=== PATIENT | male | born 1945 | race Hispanic/Latino ===

== ENCOUNTER 2018-07-03 19:25 | Inpatient (IN) | payer MEDICARE ==
[2018-07-03 20:27] LABS: #Eosinphils 0.1 thou/uL (0.0-0.7); #Monocytes 0.5 thou/uL (0.11-0.59); #Neutrophils 4.9 thou/uL (1.40-6.50); %Basophils 0.4 % (0.0-1.0); %Eosinophils 2.2 % (0.0-10.0); %Lymphocytes 15.6 % (21.0-51.0); %Neutrophils 74.8 % (42.0-75.0); Hemoglobin 12.2 g/dL (14.0-18.0); Mean Corpuscular HGB CONC 32.1 g/dL (32.0-36.0); Mean Corpuscular Hemoglobin 29.1 pg (27.0-31.0); Mean Corpuscular Volume 90.9 fL (78.0-98.0); Mean Platelet Volume 6.9 fL (7.4-10.4); Platelet Count 213 thou/uL (130-400); RBC Distribution Width 17.8 % (11.5-14.5); Red Blood Cell (RBC) Count 4.18 mill/uL (4.70-6.10); White Blood Cell (WBC) Count 6.5 thou/uL (4.8-10.8)
[2018-07-03] MEDS ORDERED: Magnesium 2 GM/50 ML BAG (IN WATER) ONE (20:46)
[2018-07-03 20:50] LABS: ALT (SGPT) 13 U/L (8-55); AST (SGOT) 17 U/L (5-34); Albumin 3.8 g/dL (3.4-4.8); Alkaline Phosphatase 168 U/L (40-150); Anion Gap 16 mmol/L (10-20); BUN (Urea Nitrogen) 40 mg/dL (8.4-25.7); Bilirubin, Total 0.6 mg/dL (0.2-1.2); CK (CPK) 63 U/L (30-200); Calc. Creatinine Clearance 0 mL/min (70-130); Calcium 9.4 mg/dL (7.8-10.44); Carbon Dioxide 25 mmol/L (23-31); Chloride 96 mmol/L (98-107); Estimated GFR-MDRD 9; Globulin 3.5 g/dL (2.4-3.5); Glucose 105 mg/dL (83-110); Potassium 5.2 mmol/L (3.5-5.1); Protein, Total 7.3 g/dL (5.8-8.1); Sodium 132 mmol/L (136-145); Troponin I 0.087 ng/mL (< 0.028)
--- NOTE | 2018-07-03 21:51 | RAD ---
FRONTAL RADIOGRAPH CHEST: 07/03/18 COMPARISON: None. HISTORY: Indigestion, chest pain, short of breath. FINDINGS: There are nonspecific increased linear interstitial densities in bilateral perihilar regions, as well as within the infrahilar region on the left. No pneumothorax, lobar consolidation, or alveolar edema . There is a questionable nodular density within the mid right lung zone laterally measuring 1.4 cm. IMPRESSION: Perihilar interstitial prominence, of uncertain significance/chronicity. Question pulmonary nodular l ateral mid right lung zone measuring 1.4 cm. Nonemergent followup chest CT is advised. Code T Code LN POS: JAY
[2018-07-03] MEDS ORDERED: Pantoprazole 40 MG VIAL ONE (22:28)
[2018-07-03] MEDS ORDERED: Gabapentin 100 MG CAP PO SCH (22:30)
[2018-07-03] MEDS ORDERED: Enoxaparin Sodium 80 MG/0.8 ML SYRINGE ONE (22:39)
[2018-07-03] MEDS ORDERED: Ondansetron ODT 4 MG TAB SL PRN (23:45)
[2018-07-03] MEDS ORDERED: Ondansetron PF 4 MG/2 ML Vial IVP PRN (23:45)
[2018-07-03 23:55] LABS: Troponin I 0.066 ng/mL (< 0.028)
[2018-07-04] MEDS ORDERED: Acetaminophen/Codeine 30-300mg Tablet PO PRN (01:10)
[2018-07-04] MEDS ORDERED: Acetaminophen ER (8hr) 650 MG TAB PO PRN (01:10)
[2018-07-04] MEDS ORDERED: Acetaminophen 325 MG TAB PO PRN (01:12)
[2018-07-04 02:22] LABS: #Eosinphils 0.1 thou/uL (0.0-0.7); #Lymphocytes 1.4 thou/uL (1.20-3.40); #Monocytes 0.6 thou/uL (0.11-0.59); #Neutrophils 4.3 thou/uL (1.40-6.50); %Basophils 0.7 % (0.0-1.0); %Eosinophils 2.2 % (0.0-10.0); %Lymphocytes 21.8 % (21.0-51.0); %Monocytes 9.6 % (0.0-10.0); %Neutrophils 65.8 % (42.0-75.0); Mean Corpuscular HGB CONC 32.5 g/dL (32.0-36.0); Mean Corpuscular Hemoglobin 29.7 pg (27.0-31.0); Mean Corpuscular Volume 91.3 fL (78.0-98.0); Platelet Count 205 thou/uL (130-400); RBC Distribution Width 18.1 % (11.5-14.5); Red Blood Cell (RBC) Count 4.05 mill/uL (4.70-6.10); White Blood Cell (WBC) Count 6.5 thou/uL (4.8-10.8)
[2018-07-04 02:50] LABS: Troponin I 0.084 ng/mL (< 0.028)
[2018-07-04 03:01] LABS: Anion Gap 17 mmol/L (10-20); BUN (Urea Nitrogen) 42 mg/dL (8.4-25.7); Calc. Creatinine Clearance 10 mL/min (70-130); Calcium 9.3 mg/dL (7.8-10.44); Carbon Dioxide 23 mmol/L (23-31); Chloride 97 mmol/L (98-107); Estimated GFR-MDRD 9; Glucose 98 mg/dL (83-110); Sodium 132 mmol/L (136-145)
[2018-07-04 04:23] LABS: Digoxin Less than 0.15 ng/mL (0.8-2.0)
[2018-07-04] MEDS ORDERED: Aspirin 325 MG TAB PO SCH (09:00)
[2018-07-04] MEDS ORDERED: Prevnar 13-Val Conj/PF 0.5 ML SYRINGE IM ONE (09:00)
[2018-07-04] MEDS ORDERED: Heparin 5,000 UNITS/ML VIAL SC SCH (09:00)
[2018-07-04] MEDS: Lisinopril 20 MG TAB PO SCH (09:07)
[2018-07-04] MEDS: Calcium Acetate 667 MG CAP PO SCH ×3 (09:08→16:52)
[2018-07-04] MEDS: Gabapentin 100 MG CAP PO SCH ×2 (09:08→22:10)
[2018-07-04] MEDS: Famotidine 20 MG TAB PO SCH (09:10)
[2018-07-04] MEDS: Famotidine/PF 20 mg/2ml Vial SLOW IVP SCH (09:11)
--- NOTE | 2018-07-04 11:08 | PDOC.PN ---
- Subjective Encounter Start Date: 07/04/18 Encounter Start Time: 10:00 Subjective: no sob or palpitations -: feels better now -: had gerd like symptoms last evening - Objective Resuscitation Status - Order Detail: 07/04/18 01:12 Resuscitation Status Routine Resuscitation Status: FULL: Full Resuscitation MAR Reviewed: Yes Vital Signs & Weight: Vital Signs (12 hours) Temp Pulse Resp BP BP Pulse Ox 07/04/18 10:48 97.4 F L 108 H 15 133/88 97 07/04/18 08:59 97.4 F L 110 H 16 134/98 H 98 07/04/18 05:12 97.3 F L 89 16 137/68 97 07/04/18 01:12 98.0 F 95 16 125/78 99 07/03/18 23:45 100 07/03/18 23:30 98.5 F 95 15 125/78 100 Weight Weight 155 lb 4 oz Result Diagrams: 07/04/18 02:14 07/04/18 02:14 Phys Exam - Physical Examination HEENT: PERRLA, moist MMs Neck: no JVD, supple Respiratory: no wheezing, no rales Cardiovascular: RRR, no significant murmur Gastrointestinal: soft, non-tender, positive bowel sounds Musculoskeletal: no edema, pulses present Neurological: non-focal, moves all 4 limbs Psychiatric: normal affect, A&O x 3 Dx/Plan (1) Afib Code(s): I48.91 - UNSPECIFIED ATRIAL FIBRILLATION Status: Acute Qualifiers: Atrial fibrillation type: paroxysmal Qualified Code(s): I48.0 - Paroxysmal atrial fibrillation (2) Chest pain Code(s): R07.9 - CHEST PAIN, UNSPECIFIED Status: Acute Qualifiers: Chest pain type: unspecified Qualified Code(s): R07.9 - Chest pain, unspecified (3) ESRD (end stage renal disease) on dialysis Code(s): N18.6 - END STAGE RENAL DISEASE; Z99.2 - DEPENDENCE ON RENAL DIALYSIS Status: Chronic (4) Herpes zoster Code(s): B02.9 - ZOSTER WITHOUT COMPLICATIONS Status: Acute (5) HTN (hypertension) Code(s): I10 - ESSENTIAL (PRIMARY) HYPERTENSION Status: Chronic Qualifiers: Hypertension type: essential hypertension Qualified Code(s): I10 - Essential (primary) hypertension (6) Volume overload Code(s): E87.70 - FLUID OVERLOAD, UNSPECIFIED Status: Acute - Plan on asp, lipitor, coreg, lisinopril -: echo for LV function -: afib per cardio adv -: will likely need HD with fluid removal -: will f/u, he amb by himself with no assistive devices * . Review of Systems - Medications/Allergies Allergies/Adverse Reactions: Allergies Allergy/AdvReac Type Severity Reaction Status Date / Time No Known Allergies Allergy Unverified 07/03/18 22:27 Medications: Current Medications Acetaminophen (Tylenol Er (8hr Arthritis Pain)) 1,300 mg PO Q8H PRN PRN Reason: Pain 1-3 Acetaminophen (Tylenol) 650 mg PO Q4H PRN PRN Reason: Headache/Fever/Mild Pain (1-3) Acetaminophen/Codeine Phosphate (Tylenol #3) 1 tab PO Q6H PRN PRN Reason: Pain 4-6 Aspirin (Aspirin) 325 mg PO DAILY [facility] Stop: 07/04/18 12:00 Last Admin: 07/04/18 09:10 Dose: 325 mg Atorvastatin Calcium (Lipitor) 10 mg PO QPM [facility] Calcium Acetate (Phoslo) 2,001 mg PO TID-[facility] Last Admin: 07/04/18 09:08 Dose: 2,001 mg Carvedilol (Coreg) 6.25 mg PO BID-[facility] Famotidine (Pepcid) 20 mg SLOW IVP DAILY [facility] Last Admin: 07/04/18 09:11 Dose: Not Given Famotidine (Pepcid) 20 mg PO DAILY [facility] Last Admin: 07/04/18 09:10 Dose: 20 mg Gabapentin (Neurontin) 100 mg PO BID [facility] Last Admin: 07/04/18 09:08 Dose: 100 mg Heparin Sodium (Porcine) (Heparin) 5,000 units SC BID [facility] Last Admin: 07/04/18 09:10 Dose: 5,000 units Lisinopril (Zestril) 20 mg PO DAILY [facility] Last Admin: 07/04/18 09:07 Dose: 20 mg Sodium Chloride (Flush - Normal Saline) 10 ml IVF PRN PRN PRN Reason: Saline Flush
[2018-07-04] MEDS: Heparin 10,000 UNITS/ 10 ML VIAL SLOW IVP SCH (12:41)
[2018-07-04] MEDS: Heparin 25,000 units/D5W 500 ML IV SCH (12:42)
[2018-07-04 13:17] LABS: Hemoglobin 12.8 g/dL (14.0-18.0); Platelet Count 201 thou/uL (130-400)
[2018-07-04 13:31] LABS: PTT 216.1 SEC (22.9-36.1)
[2018-07-04] MEDS ORDERED: Carvedilol 6.25 MG TAB PO SCH (15:00)
[2018-07-04] MEDS: Carvedilol 6.25 MG TAB PO SCH (16:52)
[2018-07-04] MEDS: Atorvastatin Calcium 10 MG TAB PO SCH (22:10)
--- NOTE | 2018-07-05 01:21 | CON ---
DATE OF CONSULTATION: 07/04/2018 TYPE OF CONSULTATION: Nephrology CONSULTING PHYSICIAN: Dr. Mayorga. REASON FOR CONSULTATION: End-stage renal disease evaluation. REASON FOR ADMISSION: Heartburn. HISTORY OF PRESENT ILLNESS: This is a 72-year-old male with history of end- stage renal disease, on hemodialysis Monday, , and Monday; hypertension; coronary artery disease; neuropathy; came to the hospital with the above complaints. Nephrology consulted for maintenance hemodialysis. The patient gets dialysis at [facility]. No fever or chills. No nausea or vomiting. PAST MEDICAL HISTORY: Positive for; 1. End-stage renal disease. 2. Hypertension. 3. Neuropathy. PAST SURGICAL HISTORY: Fistula surgery. HOME MEDICATIONS: 1. Gabapentin. 2. Losartan. 3. Lisinopril. 4. Simvastatin. 5. Calcium acetate. ALLERGIES: NO KNOWN DRUG ALLERGIES. SOCIAL HISTORY: No smoking, alcohol, or illicit drug abuse. FAMILY HISTORY: No history of kidney disease. REVIEW OF SYSTEMS: The following complete review of systems was negative, unless otherwise mentioned in the HPI or below: Constitutional: Weight loss or gain, ability to conduct usual activities. Skin: Rash, itching. Eyes: Double vision, pain. Ent/mouth: Nose bleeding, neck stiffness, pain, tenderness. Cardiovascular: Palpitations, dyspnea on exertion, orthopnea. Respiratory: Shortness of breath, wheezing, cough, hemoptysis, fever or night sweats. Gastrointestinal: Poor appetite, abdominal pain, heartburn, nausea,vomiting, constipation, or diarrhea. Genitourinary: Urgency, frequency, dysuria, nocturia. Musculoskeletal: Pain, swelling. Neurologic/psychiatric: Anxiety, depression. Allergy/immunologic: Skin rash, bleeding tendency. PHYSICAL EXAMINATION: GENERAL: Reveals a well-developed male, in no apparent distress. VITAL SIGNS: Temperature 97.4, pulse 108, respirations , and blood pressure 133/88. Musculoskeletal : No tenderness, No edema HEENT: Atraumatic normocephalic Neck: Supple Cardiovascular: S1S2 heard, Rate and rhythm regular Respiratory: Clear to auscultation Gastrointestinal: Abdomen is soft Dermatologic : No skin rash Neurologic: Alert and awake and oriented X3 No focal neurologic deficits. Moving all the extremities. Psychiatric: Mood and affect normal LABORATORY DATA: Potassium is 5.0, BUN is 42, and creatinine 6.04. ASSESSMENT AND PLAN: 1. End-stage renal disease, on hemodialysis. We will continue dialysis on Monday, , and Monday. 2. Edema, controlled. 3. Hypertension, stable. 4. Anemia. Monitor hemoglobin. PLAN: Continue dialysis on Monday, , and Monday. Job ID: [id number] MTDD
[2018-07-05] MEDS: Heparin 10,000 UNITS/ 10 ML VIAL SLOW IVP SCH ×3 (02:50→20:47)
[2018-07-05 05:41] LABS: Hemoglobin 11.2 g/dL (14.0-18.0); Platelet Count 209 thou/uL (130-400)
--- NOTE | 2018-07-05 09:05 | CON ---
DATE OF CONSULTATION: 07/04/2018 HISTORY OF PRESENT ILLNESS: The patient is an unfortunate 72-year-old gentleman , who presented with chest discomfort. The patient has a long history of hypertension and end-stage renal disease. The patient presented to the emergency room with indigestion. He reports discomfort while he was eating. The patient was noted to have elevated BNP level and admitted for further evaluation. The patient denies having any chest discomfort. The patient denies having any dyspnea on exertion, PND, or orthopnea. PAST MEDICAL HISTORY: 1. End-stage renal disease. 2. Hypertension. PAST SURGICAL HISTORY: Abdominal surgery. MEDICATIONS: 1. Lisinopril 20 daily. 2. Losartan 50 daily. 3. Gabapentin 100 t.i.d. 4. Zocor 20 q.h.s. ALLERGIES: NO KNOWN DRUG ALLERGIES. REVIEW OF SYSTEMS: 10-point systems otherwise unremarkable. PHYSICAL EXAMINATION: GENERAL: This is a thin gentleman, in no acute distress. VITAL SIGNS: Blood pressure 134/98. NECK: Showed no jugular venous distention. LUNGS: Have crackles in both bases. HEART: Regular rate and rhythm. Normal S1 and S2 with a 1/6 systolic murmur. ABDOMEN: Nondistended. EXTREMITIES: He has an AV fistulas. NEUROLOGIC: Nonfocal. LABORATORY DATA: Sodium 132, potassium 5.0, chloride 97, bicarbonate 23, BUN 42 , and creatinine 6.0. Troponin 0.084. BNP is 4513. His white blood cell count is 6.5, hemoglobin 12.0, hematocrit 37.0, and platelets are 205. His EKG revealed atrial fibrillation with a T-wave abnormality suggestive of ischemia. IMPRESSION: 1. New-onset atrial fibrillation. 2. Severe cardiomyopathy. 3. Aortic stenosis. 4. Hypertension. 5. End-stage renal disease. This unfortunate gentleman has a severe cardiomyopathy. The patient is relatively asymptomatic from a cardiac standpoint. We would recommend increasing his lisinopril. We would also proceed with cardiac catheterization to evaluate the extent of his coronary artery disease and possible aortic stenosis. We will check the patient's echocardiogram. We will start the patient on heparin and follow this patient with you through his hospitalization. Job ID: [id number] [facility]
[2018-07-05 09:16] LABS: INR-International Normal Ratio 1.4; PTT 62.5 SEC (22.9-36.1); Prothrombin Time 16.9 SEC (12.0-14.7)
[2018-07-05] MEDS ORDERED: Tuberculin PPD 0.1 ML VIAL I-DERMAL SCH (09:45)
--- NOTE | 2018-07-05 10:06 | PDOC.PN ---
- Subjective Encounter Start Date: 07/05/18 Encounter Start Time: 09:00 Subjective: no sob or palpitations -: is amb in room -: is on heparin drip - Objective Resuscitation Status - Order Detail: 07/04/18 01:12 Resuscitation Status Routine Resuscitation Status: FULL: Full Resuscitation MAR Reviewed: Yes Vital Signs & Weight: Vital Signs (12 hours) Temp Pulse Resp BP Pulse Ox 07/05/18 08:00 97.7 F 89 15 105/69 97 07/05/18 04:00 97.8 F 90 16 110/78 100 07/05/18 00:00 98 F 91 19 121/79 97 Weight Weight 157 lb I&O: 07/04/18 07/05/18 07/06/18 06:59 06:59 06:59 Intake Total 1472 Output Total 0 Balance 1472 Result Diagrams: 07/05/18 04:57 07/04/18 02:14 Phys Exam - Physical Examination HEENT: PERRLA, moist MMs Neck: no JVD, supple Respiratory: no wheezing, no rales Cardiovascular: no significant murmur, irregular Gastrointestinal: soft, non-tender, positive bowel sounds Musculoskeletal: no edema, pulses present Neurological: non-focal, moves all 4 limbs Psychiatric: normal affect, A&O x 3 Dx/Plan (1) Afib Code(s): I48.91 - UNSPECIFIED ATRIAL FIBRILLATION Status: Acute Qualifiers: Atrial fibrillation type: paroxysmal Qualified Code(s): I48.0 - Paroxysmal atrial fibrillation (2) Chest pain Code(s): R07.9 - CHEST PAIN, UNSPECIFIED Status: Resolved Qualifiers: Chest pain type: unspecified Qualified Code(s): R07.9 - Chest pain, unspecified (3) ESRD (end stage renal disease) on dialysis Code(s): N18.6 - END STAGE RENAL DISEASE; Z99.2 - DEPENDENCE ON RENAL DIALYSIS Status: Chronic (4) Herpes zoster Code(s): B02.9 - ZOSTER WITHOUT COMPLICATIONS Status: Acute (5) HTN (hypertension) Code(s): I10 - ESSENTIAL (PRIMARY) HYPERTENSION Status: Chronic Qualifiers: Hypertension type: essential hypertension Qualified Code(s): I10 - Essential (primary) hypertension (6) Volume overload Code(s): E87.70 - FLUID OVERLOAD, UNSPECIFIED Status: Acute (7) Acute exacerbation of CHF (congestive heart failure) Code(s): I50.9 - HEART FAILURE, UNSPECIFIED Status: Acute Qualifiers: Heart failure type: systolic Qualified Code(s): I50.23 - Acute on chronic systolic (congestive) heart failure Comment: ef of 15% - Plan echo shows ef of 15%, severe TR -: will need risk stratification/stress/cath -: is for cardioversion in am per patient -: on heparin drip, coreg * . Review of Systems - Medications/Allergies Allergies/Adverse Reactions: Allergies Allergy/AdvReac Type Severity Reaction Status Date / Time No Known Allergies Allergy Unverified 07/03/18 22:27 Medications: Current Medications Acetaminophen (Tylenol Er (8hr Arthritis Pain)) 1,300 mg PO Q8H PRN PRN Reason: Pain 1-3 Acetaminophen (Tylenol) 650 mg PO Q4H PRN PRN Reason: Headache/Fever/Mild Pain (1-3) Acetaminophen/Codeine Phosphate (Tylenol #3) 1 tab PO Q6H PRN PRN Reason: Pain 4-6 Atorvastatin Calcium (Lipitor) 10 mg PO QPM [facility] Last Admin: 07/04/18 22:10 Dose: 10 mg Calcium Acetate (Phoslo) 2,001 mg PO TID-[facility] Last Admin: 07/04/18 16:52 Dose: 2,001 mg Carvedilol (Coreg) 6.25 mg PO BID-[facility] Last Admin: 07/04/18 16:52 Dose: 6.25 mg Famotidine (Pepcid) 20 mg SLOW IVP DAILY [facility] Last Admin: 07/04/18 09:11 Dose: Not Given Famotidine (Pepcid) 20 mg PO DAILY [facility] Last Admin: 07/04/18 09:10 Dose: 20 mg Gabapentin (Neurontin) 100 mg PO BID [facility] Last Admin: 07/04/18 22:10 Dose: 100 mg Heparin Sodium (Porcine) (Heparin 1,000 Units/Ml (10 Ml)) 0 units SLOW IVP WILLCALL [facility] Last Admin: 07/05/18 02:50 Dose: 2,112.6 unit Heparin Sodium/Dextrose (Heparin 25,000 Units/D5w 500 Ml) 500 mls @ 0 mls/hr IV INF [facility]; Protocol Last Admin: 07/04/18 12:42 Dose: 500 mls Lisinopril (Zestril) 20 mg PO DAILY [facility] Last Admin: 07/04/18 09:07 Dose: 20 mg Sodium Chloride (Flush - Normal Saline) 10 ml IVF PRN PRN PRN Reason: Saline Flush Tuberculin PPD (Aplisol) 0.1 ml I-DERMAL ONE [facility] Stop: 07/08/18 09:46 Warfarin Sodium (Coumadin) 5 mg PO 1700 [facility]
[2018-07-05 10:32] LABS: HBSAg Index 0.23 S/CO (0-0.99); Hep B Core Total Ab Non-Reactive (NonReactive); Hep B Core Total Index 0.18 S/CO (0-0.79); Hep B Surf Ag Non-Reactive S/CO (NonReactive); Hep C IgG Ab Non-Reactive (NonReactive); Hep C Index 0.08 S/CO (0-0.79)
[2018-07-05 11:36] LABS: Hep B Surf AB Reactive (NonReactive)
[2018-07-05 11:37] LABS: HBSAB Concentration 137.96 mIU/mL
[2018-07-05] MEDS: Heparin 25,000 units/D5W 500 ML IV SCH (15:08)
[2018-07-05] MEDS: Calcium Acetate 667 MG CAP PO SCH ×2 (16:25→18:18)
[2018-07-05] MEDS: Famotidine 20 MG TAB PO SCH (16:25)
[2018-07-05] MEDS: Carvedilol 6.25 MG TAB PO SCH ×2 (16:25→18:18)
[2018-07-05] MEDS: Famotidine/PF 20 mg/2ml Vial SLOW IVP SCH (16:26)
[2018-07-05] MEDS: Gabapentin 100 MG CAP PO SCH ×2 (16:26→20:47)
[2018-07-05] MEDS: Lisinopril 20 MG TAB PO SCH (16:26)
[2018-07-05 16:41] LABS: Hemoglobin 11.2 g/dL (14.0-18.0); Platelet Count 197 thou/uL (130-400)
[2018-07-05] MEDS: Atorvastatin Calcium 10 MG TAB PO SCH (20:47)
[2018-07-05] MEDS ORDERED: Warfarin Sodium 5 MG TAB PO SCH (21:45)
--- NOTE | 2018-07-05 22:40 | PRG ---
DATE OF SERVICE: 07/05/2018 SUBJECTIVE: Patient was seen and examined at bedside and overnight events noted. Patient denies any shortness of breath or chest pain or palpitation. No history of nausea or vomiting or diarrhea or fever or chills or cramps. OBJECTIVE: GENERAL: This is a well-built male, in no apparent distress. VITAL SIGNS: Temperature 97.7. Pulse 89. Respiratory rate Blood pressure 105/69. HEENT: Atraumatic, normocephalic. Oral mucosa is moist NECK: Supple. CARDIOVASCULAR: S1, S2 heard. Rate and rhythm regular. RESPIRATORY: Clear to auscultation. GASTROINTESTINAL: Abdomen is soft. MUSCULOSKELETAL: No tenderness. No edema. DERMATOLOGIC: No skin rash. NEUROLOGIC: Alert and awake and oriented X3. No focal neurologic deficits. Moving all the extremities. PSYCHIATRIC: Mood and affect normal. LABORATORY DATA: Sodium is 132, potassium is 5.0, creatinine is 6.0. ASSESSMENT AND PLAN: 1. End-stage renal disease. Continue dialysis on Monday, , and Monday. The patient wants to switch his facility closer to home .. 2. Edema. 3. Hypertension, stable. 4. Anemia. Monitor hemoglobin. PLAN: We will continue dialysis on Monday, , and Monday. Job ID: [id number]
[2018-07-06] MEDS: Heparin 10,000 UNITS/ 10 ML VIAL SLOW IVP SCH (02:00)
[2018-07-06 05:43] LABS: Hemoglobin 12.8 g/dL (14.0-18.0); Platelet Count 233 thou/uL (130-400)
[2018-07-06 05:58] LABS: INR-International Normal Ratio 1.3; Prothrombin Time 16.3 SEC (12.0-14.7)
[2018-07-06] MEDS ORDERED: PROPOFOL 20 ML ONE ×2 (08:40→08:41)
[2018-07-06] MEDS ORDERED: Lidocaine 1% PF 5 ML VIAL ONE ×2 (08:41→11:16)
--- NOTE | 2018-07-06 10:34 | PQF ---
DATE: 07-06-18 ATTN : DR. JESSICA MONK Please exercise your independent, professional judgment in responding to the clarification form. Clinical indicators are provided on the bottom of this form for your review Diagnosis: ACUTE ON CHRONIC SYSTOLIC CONGESTIVE HEART FAILURE Present on Admission (POA): [ x ] Yes [ ] No [ ] Unable to determine Coding guidelines require hospitals to identify whether a diagnosis was present on admission (POA) or not. To accurately assign the appropriate POA indicator, this information must be clearly documented within the medical record. CLINICAL INDICATORS - SIGNS / SYMPTOMS / LABS ER: NEW ONSET A FIB RVR, ESRD, HYPERKALEMIA MILD BNP: 07-03-18: [address] MONK 07-05-18: ACUTE ON CHRONIC SYSTOLIC CHF, ECHO SHOWS EF 15 %, SEVERE TR RISK FACTORS: CONSULT NOTE DR. THORPE 07-04-18: HX HTN, ESRD, WAS NOTED TO HAVE ELEVATED BNP LEVEL AND ADMITTED FOR EVALUATION, SEVERE CARDIOMYOPATHY TREATMENT: PN DR. MONK 07-04-18: ON COREG, LISINOPRIL, ECHO FOR LV FUNCTION, CARDIO CONSULT (This form is maintained as a part of the permanent medical record) 2014 [employer]. All Rights Reserved [email or web address] Office: [phone] [facility]ENTER[facility]
--- NOTE | 2018-07-06 11:14 | PDOC.PN ---
- Subjective Encounter Start Date: 07/06/18 Encounter Start Time: 12:00 Subjective: is post KARTHIKEYAN -: drowsy but responds to verbal stimuli - Objective Resuscitation Status - Order Detail: 07/04/18 01:12 Resuscitation Status Routine Resuscitation Status: FULL: Full Resuscitation MAR Reviewed: Yes Vital Signs & Weight: Vital Signs (12 hours) Temp Pulse Resp BP BP Pulse Ox 07/06/18 07:56 97.4 F L 94 16 131/90 97 07/06/18 04:00 98.6 F 106 H 12 128/96 H 98 Weight Weight 157 lb 6.561 oz I&O: 07/05/18 07/06/18 07/07/18 06:59 06:59 06:59 Intake Total 1472 733.2 Output Total 0 Balance 1472 733.2 Result Diagrams: 07/06/18 04:27 07/04/18 02:14 Phys Exam - Physical Examination HEENT: PERRLA, sclera anicteric Neck: no JVD, supple Respiratory: no wheezing, no rales Cardiovascular: no significant murmur, irregular Gastrointestinal: soft, non-tender, positive bowel sounds Musculoskeletal: no edema, pulses present Neurological: non-focal, moves all 4 limbs Dx/Plan (1) Afib Code(s): I48.91 - UNSPECIFIED ATRIAL FIBRILLATION Status: Acute Qualifiers: Atrial fibrillation type: paroxysmal Qualified Code(s): I48.0 - Paroxysmal atrial fibrillation (2) Chest pain Code(s): R07.9 - CHEST PAIN, UNSPECIFIED Status: Resolved Qualifiers: Chest pain type: unspecified Qualified Code(s): R07.9 - Chest pain, unspecified (3) ESRD (end stage renal disease) on dialysis Code(s): N18.6 - END STAGE RENAL DISEASE; Z99.2 - DEPENDENCE ON RENAL DIALYSIS Status: Chronic (4) Herpes zoster Code(s): B02.9 - ZOSTER WITHOUT COMPLICATIONS Status: Acute Comment: over the occipital area from 3 weeks, is resolving and almost crusted except one area (5) HTN (hypertension) Code(s): I10 - ESSENTIAL (PRIMARY) HYPERTENSION Status: Chronic Qualifiers: Hypertension type: essential hypertension Qualified Code(s): I10 - Essential (primary) hypertension (6) Volume overload Code(s): E87.70 - FLUID OVERLOAD, UNSPECIFIED Status: Acute (7) Acute exacerbation of CHF (congestive heart failure) Code(s): I50.9 - HEART FAILURE, UNSPECIFIED Status: Acute Qualifiers: Heart failure type: systolic Qualified Code(s): I50.23 - Acute on chronic systolic (congestive) heart failure Comment: ef of 15% - Plan had KARTHIKEYAN done this morning, await full report, became apneic during the proc -: -edure and no cardioversion was attempted. -: await full records from [facility] to see for prior EF or cardiac procedure -: -s if any was done there. -: Had HD yesterday, was a bit agitated last evening per staff, ripped his iv * . is on heparin drip, coreg, lisinopril and lipitor. Is awaiting HD chair set up at [place]. Prognosis guarded, will get palliative care consultation. Will need angiogram/stress test in view of low ef prior to discharge. Addendum: re-evaluated him around 4pm, is more drowsy now, daughter at bedside. D/w charge nurse to keep an eye on his resp rate and further decline in mentation. May transfer to [facility] if he gets worse for close monitoring. Review of Systems - Medications/Allergies Allergies/Adverse Reactions: Allergies Allergy/AdvReac Type Severity Reaction Status Date / Time No Known Allergies Allergy Unverified 07/03/18 22:27 Medications: Current Medications Acetaminophen (Tylenol Er (8hr Arthritis Pain)) 1,300 mg PO Q8H PRN PRN Reason: Pain 1-3 Acetaminophen (Tylenol) 650 mg PO Q4H PRN PRN Reason: Headache/Fever/Mild Pain (1-3) Acetaminophen/Codeine Phosphate (Tylenol #3) 1 tab PO Q6H PRN PRN Reason: Pain 4-6 Atorvastatin Calcium (Lipitor) 10 mg PO QPM [facility] Last Admin: 07/05/18 20:47 Dose: 10 mg Calcium Acetate (Phoslo) 2,001 mg PO TID-[facility] Last Admin: 07/05/18 18:18 Dose: Not Given Carvedilol (Coreg) 6.25 mg PO BID-[facility] Last Admin: 07/05/18 18:18 Dose: Not Given Famotidine (Pepcid) 20 mg SLOW IVP DAILY [facility] Last Admin: 07/05/18 16:26 Dose: Not Given Famotidine (Pepcid) 20 mg PO DAILY [facility] Last Admin: 07/05/18 16:25 Dose: Not Given Gabapentin (Neurontin) 100 mg PO BID [facility] Last Admin: 07/05/18 20:47 Dose: 100 mg Heparin Sodium (Porcine) (Heparin 1,000 Units/Ml (10 Ml)) 0 units SLOW IVP WILLCALL [facility] Last Admin: 07/06/18 02:00 Dose: 2,116 unit Heparin Sodium/Dextrose (Heparin 25,000 Units/D5w 500 Ml) 500 mls @ 0 mls/hr IV INF [facility]; Protocol Last Admin: 07/05/18 15:08 Dose: 500 mls Lisinopril (Zestril) 20 mg PO DAILY [facility] Last Admin: 07/05/18 16:26 Dose: Not Given Sodium Chloride (Flush - Normal Saline) 10 ml IVF PRN PRN PRN Reason: Saline Flush Tuberculin PPD (Aplisol) 0.1 ml I-DERMAL ONE [facility] Stop: 07/08/18 09:46 Last Admin: 07/05/18 11:21 Dose: 0.1 ml Warfarin Sodium (Coumadin) 5 mg PO 1700 [facility]
[2018-07-06] MEDS ORDERED: PROPOFOL 200 MG/20 ML VIAL ONE (11:16)
[2018-07-06] MEDS ORDERED: PHENYLEPHRINE-NS 100 MCG/ML 10 ML SYRINGE ONE (11:16)
[2018-07-06] MEDS: Calcium Acetate 667 MG CAP PO SCH ×3 (12:05→17:00)
[2018-07-06] MEDS: Gabapentin 100 MG CAP PO SCH ×2 (12:06→21:35)
[2018-07-06] MEDS: Lisinopril 20 MG TAB PO SCH (12:06)
[2018-07-06] MEDS: Famotidine 20 MG TAB PO SCH (12:07)
[2018-07-06] MEDS ORDERED: Carvedilol 6.25 MG TAB PO SCH (12:15)
[2018-07-06] MEDS: Carvedilol 6.25 MG TAB PO SCH ×2 (12:24→17:00)
[2018-07-06] MEDS: Famotidine/PF 20 mg/2ml Vial SLOW IVP SCH (12:24)
[2018-07-06] MEDS: Heparin 25,000 units/D5W 500 ML IV SCH (13:36)
--- NOTE | 2018-07-06 16:46 | PRG ---
DATE OF SERVICE: 07/06/2018 SUBJECTIVE: Patient was seen and examined at bedside and overnight events noted. Patient denies any shortness of breath or chest pain or palpitation. No history of nausea or vomiting or diarrhea or fever or chills or cramps. OBJECTIVE: GENERAL: This is a well-built male, in no apparent distress. VITAL SIGNS: Temperature respiratory rate 18, blood pressure 119/70. HEENT: Atraumatic, normocephalic. Oral mucosa is moist NECK: Supple. CARDIOVASCULAR: S1, S2 heard. Rate and rhythm regular. RESPIRATORY: Clear to auscultation. GASTROINTESTINAL: Abdomen is soft. MUSCULOSKELETAL: No tenderness. No edema. DERMATOLOGIC: No skin rash. NEUROLOGIC: Alert and awake and oriented X3. No focal neurologic deficits. Moving all the extremities. PSYCHIATRIC: Mood and affect normal. LABORATORY DATA: Potassium is 5 . ASSESSMENT AND PLAN: 1. End-stage renal disease, continue dialysis on Monday, , and Monday. 2. Edema. 3. Hypertension. 4. Anemia. We will monitor hemoglobin. PLAN: We will continue on dialysis as tolerated. Job ID: [id number]
[2018-07-06] MEDS: Warfarin Sodium 5 MG TAB PO SCH (17:00)
[2018-07-06] MEDS: Atorvastatin Calcium 10 MG TAB PO SCH (21:35)
--- NOTE | 2018-07-06 22:33 | RAD ---
SINGLE VIEW OF THE CHEST: 07/06/18 COMPARISON: 07/03/18 HISTORY: Central line placement. FINDINGS: Single view of the chest shows an enlarged cardiomediastinal silhouette. There is a left sided centra l venous catheter with its tip in the superior vena cava. No pneumothorax is seen. There is no eviden ce of consolidation, mass, or pleural effusion. IMPRESSION: Status post central line placement without evidence of complication. POS: [facility]
[2018-07-07 05:34] LABS: Prothrombin Time 22.3 SEC (12.0-14.7)
[2018-07-07 05:36] LABS: PTT 87.4 SEC (22.9-36.1)
[2018-07-07 05:42] LABS: Anion Gap 18 mmol/L (10-20); BUN (Urea Nitrogen) 44 mg/dL (8.4-25.7); Calc. Creatinine Clearance 10 mL/min (70-130); Calcium 8.8 mg/dL (7.8-10.44); Carbon Dioxide 20 mmol/L (23-31); Chloride 94 mmol/L (98-107); Estimated GFR-MDRD 9; Glucose 114 mg/dL (83-110); Potassium 4.7 mmol/L (3.5-5.1); Sodium 127 mmol/L (136-145)
[2018-07-07] MEDS: Lisinopril 2.5 MG TAB PO SCH (08:44)
[2018-07-07] MEDS: Gabapentin 100 MG CAP PO SCH ×2 (08:44→21:28)
[2018-07-07] MEDS: Carvedilol 6.25 MG TAB PO SCH ×2 (08:44→16:30)
[2018-07-07] MEDS: Calcium Acetate 667 MG CAP PO SCH ×3 (08:45→16:30)
[2018-07-07] MEDS: Famotidine 20 MG TAB PO SCH (08:45)
[2018-07-07 10:13] LABS: Hemoglobin 11.5 g/dL (14.0-18.0); Platelet Count 194 thou/uL (130-400)
--- NOTE | 2018-07-07 12:53 | PDOC.PN ---
- Subjective Encounter Start Date: 07/07/18 Encounter Start Time: 09:30 Subjective: is more awake this am, daughter at bedside -: no chest pain or sob -: not sure if his lower lip is swelling up, no tongue or post pharynx swellin - Objective Resuscitation Status - Order Detail: 07/04/18 01:12 Resuscitation Status Routine Resuscitation Status: FULL: Full Resuscitation MAR Reviewed: Yes Vital Signs & Weight: Vital Signs (12 hours) Temp Pulse Resp BP Pulse Ox 07/07/18 11:23 97 F L 93 14 106/68 94 L 07/07/18 08:44 99 07/07/18 08:00 97 07/07/18 07:47 96.2 F L 99 16 113/61 97 07/07/18 04:00 98.6 F 88 14 110/51 L 95 Weight Weight 161 lb 6.054 oz I&O: 07/06/18 07/07/18 07/08/18 06:59 06:59 06:59 Intake Total 733.2 1079.2 Output Total 0 Balance 733.2 1079.2 Result Diagrams: 07/07/18 04:38 07/07/18 04:39 Phys Exam - Physical Examination HEENT: PERRLA, moist MMs Neck: no JVD, supple Respiratory: no wheezing, no rales Cardiovascular: no significant murmur, irregular Gastrointestinal: soft, non-tender, positive bowel sounds Musculoskeletal: no edema, pulses present Neurological: non-focal, moves all 4 limbs Psychiatric: A&O x 3 Dx/Plan (1) Acute exacerbation of CHF (congestive heart failure) Code(s): I50.9 - HEART FAILURE, UNSPECIFIED Status: Acute Qualifiers: Heart failure type: systolic Qualified Code(s): I50.23 - Acute on chronic systolic (congestive) heart failure Comment: ef of 15% (2) Afib Code(s): I48.91 - UNSPECIFIED ATRIAL FIBRILLATION Status: Acute Qualifiers: Atrial fibrillation type: paroxysmal Qualified Code(s): I48.0 - Paroxysmal atrial fibrillation Comment: rate controlled (3) Chest pain Code(s): R07.9 - CHEST PAIN, UNSPECIFIED Status: Resolved Qualifiers: Chest pain type: unspecified Qualified Code(s): R07.9 - Chest pain, unspecified (4) ESRD (end stage renal disease) on dialysis Code(s): N18.6 - END STAGE RENAL DISEASE; Z99.2 - DEPENDENCE ON RENAL DIALYSIS Status: Chronic (5) Herpes zoster Code(s): B02.9 - ZOSTER WITHOUT COMPLICATIONS Status: Acute Comment: over the occipital area from 3 weeks, is resolving and almost crusted except one area (6) HTN (hypertension) Code(s): I10 - ESSENTIAL (PRIMARY) HYPERTENSION Status: Chronic Qualifiers: Hypertension type: essential hypertension Qualified Code(s): I10 - Essential (primary) hypertension (7) Volume overload Code(s): E87.70 - FLUID OVERLOAD, UNSPECIFIED Status: Acute - Plan inr is 2, dc heparin drip -: pt has agreed for cath on monday, will inform -: is on coumadin at 5mg now, cardio to decide if he has hold it and restart h -: -eparin drip for cath on monday -: S&W echo from apr shows his ef to be 35%, had afib then * . is on coreg, lipitor, decrease dose of lisinopril (may dc if his lip swelling gets worse) sbp around 100. Will need anesthesia consultation prior to cath on monday due to apnea during KARTHIKEYAN procedure. Review of Systems - Medications/Allergies Allergies/Adverse Reactions: Allergies Allergy/AdvReac Type Severity Reaction Status Date / Time No Known Allergies Allergy Unverified 07/03/18 22:27 Medications: Current Medications Acetaminophen (Tylenol Er (8hr Arthritis Pain)) 1,300 mg PO Q8H PRN PRN Reason: Pain 1-3 Acetaminophen (Tylenol) 650 mg PO Q4H PRN PRN Reason: Headache/Fever/Mild Pain (1-3) Acetaminophen/Codeine Phosphate (Tylenol #3) 1 tab PO Q6H PRN PRN Reason: Pain 4-6 Aspirin (Aspirin Chewable) 81 mg PO DAILY [facility] Last Admin: 07/07/18 08:44 Dose: 81 mg Atorvastatin Calcium (Lipitor) 10 mg PO QPM [facility] Last Admin: 07/06/18 21:35 Dose: 10 mg Calcium Acetate (Phoslo) 2,001 mg PO TID-[facility] Last Admin: 07/07/18 12:50 Dose: 2,001 mg Carvedilol (Coreg) 12.5 mg PO BID-[facility] Last Admin: 07/07/18 08:44 Dose: 12.5 mg Famotidine (Pepcid) 20 mg PO DAILY [facility] Last Admin: 07/07/18 08:45 Dose: 20 mg Gabapentin (Neurontin) 100 mg PO BID [facility] Last Admin: 07/07/18 08:44 Dose: 100 mg Heparin Sodium (Porcine) (Heparin 1,000 Units/Ml (10 Ml)) 0 units SLOW IVP WILLCALL [facility] Last Admin: 07/06/18 02:00 Dose: 2,116 unit Lisinopril (Zestril) 2.5 mg PO DAILY [facility] Last Admin: 07/07/18 08:44 Dose: 2.5 mg Sodium Chloride (Flush - Normal Saline) 10 ml IVF PRN PRN PRN Reason: Saline Flush Tuberculin PPD (Aplisol) 0.1 ml I-DERMAL ONE [facility] Stop: 07/08/18 09:46 Last Admin: 07/05/18 11:21 Dose: 0.1 ml Warfarin Sodium (Coumadin) 5 mg PO 1700 [facility] Last Admin: 07/06/18 17:00 Dose: 5 mg
--- NOTE | 2018-07-07 16:07 | ECHO ---
Patient is a 72-year-old gentleman with atrial fibrillation with severe cardiomyopathy. The patient was taken to the PACU. The patient was sedated by anesthesia. A transesophageal probe was placed distally in the esophagus and to stomach. The patient became apneic during the procedure. The procedure had to be aborted. The transesophageal probe was removed. FINDINGS: 1. Severe decrease in left ventricular systolic function. 2. Left ventricle is mildly dilated. 3. The aortic valve leaflets are thickened with reduced leaflet excursion. 4. Mild to moderate mitral regurgitation. 5. The right ventricle is markedly dilated. 6. Spontaneous contrast is noted throughout the left atrium and left atrial appendage. IMPRESSION: Spontaneous contrast noted throughout the left atrium and left atrial appendage.
[2018-07-07] MEDS: Warfarin Sodium 5 MG TAB PO SCH (16:30)
--- NOTE | 2018-07-07 19:52 | PDOC.OP ---
Operative Note - Operative Note Operative Note: PROCEDURE: Left internal jugular central venous catheter placement with ultrasound guidance DATE OF PROCEDURE: 07/06/2018 SURGEON: Teddy Montiel M.D. PREOPERATIVE DIAGNOSES: Inadequate peripheral IV access with need for heparin drip POSTOPERATIVE DIAGNOSIS: Inadequate peripheral IV access with need for heparin drip HISTORY: Patient with renal failure who has had 2 IVs infiltrate on his nondialysis arm and has no other peripheral access sites. He is on a heparin drip and requires secure IV access. A central venous catheter was requested by his medicine team. PROCEDURE IN DETAIL: After informed consent was obtained and an ultrasound used to confirm presence of a patent compressible right internal jugular vein, the neck was prepped and draped in standard sterile fashion. Local anesthesia was infused over the right internal jugular vein which was accessed under direct ultrasound guidance with excellent flow of dark venous nonpulsatile blood. The wire however would not thread beyond the level of the clavicle, consistent with a stenosis at that location, likely related to previous tunneled hemodialysis catheter at that site.The patient's left neck was then sterilely prepped and draped and sterile ultrasound used to confirm the patent collapsible left internal jugular vein. This was accessed under direct ultrasound guidance and a wire threaded easily. Ultrasound was used to confirm the presence of the wire within the patent compressible internal jugular vein. A skin incision was made and the tract was dilated over the wire. The central venous catheter was placed over the wire and secured to the skin with sutures. All ports easily aspirated and easily flushed without resistance. A sterile antimicrobial dressing was placed. The patient tolerated the procedure well and postoperative chest x-ray showed good position of the catheter with no pneumothorax.. Estimated blood loss was minimal. There were no complications. There were no specimens.
[2018-07-07] MEDS: Atorvastatin Calcium 10 MG TAB PO SCH (21:28)
[2018-07-08] MEDS: Famotidine 20 MG TAB PO SCH (09:01)
[2018-07-08] MEDS: Lisinopril 2.5 MG TAB PO SCH (09:01)
[2018-07-08] MEDS: Carvedilol 6.25 MG TAB PO SCH ×2 (09:02→17:22)
[2018-07-08] MEDS: Calcium Acetate 667 MG CAP PO SCH ×3 (09:02→17:22)
[2018-07-08] MEDS: Gabapentin 100 MG CAP PO SCH ×2 (09:02→22:14)
[2018-07-08 10:10] LABS: INR-International Normal Ratio 3.1; Prothrombin Time 31.6 SEC (12.0-14.7)
--- NOTE | 2018-07-08 12:15 | PDOC.PN ---
- Subjective Encounter Start Date: 07/08/18 Encounter Start Time: 09:30 Subjective: awake, no sob, says he is walking in the room - Objective Resuscitation Status - Order Detail: 07/04/18 01:12 Resuscitation Status Routine Resuscitation Status: FULL: Full Resuscitation MAR Reviewed: Yes Vital Signs & Weight: Vital Signs (12 hours) Temp Pulse Resp BP Pulse Ox 07/08/18 12:00 97.2 F L 79 14 116/63 99 07/08/18 09:01 81 07/08/18 08:00 95 07/08/18 07:29 97 F L 81 16 135/71 95 07/08/18 03:33 97.9 F 97 16 123/66 98 Weight Weight 153 lb 14.4 oz I&O: 07/07/18 07/08/18 07/09/18 06:59 06:59 06:59 Intake Total 1079.2 860 Output Total 0 3500 Balance 1079.2 -2640 Result Diagrams: 07/07/18 04:38 07/07/18 04:39 Phys Exam - Physical Examination HEENT: PERRLA, sclera anicteric Neck: no JVD, supple Respiratory: no wheezing, no rales Cardiovascular: no significant murmur, irregular Gastrointestinal: soft, non-tender, positive bowel sounds Musculoskeletal: no edema, pulses present Neurological: non-focal, moves all 4 limbs Psychiatric: normal affect, A&O x 3 Dx/Plan (1) Acute exacerbation of CHF (congestive heart failure) Code(s): I50.9 - HEART FAILURE, UNSPECIFIED Status: Acute Qualifiers: Heart failure type: systolic Qualified Code(s): I50.23 - Acute on chronic systolic (congestive) heart failure Comment: ef of 15% (2) Afib Code(s): I48.91 - UNSPECIFIED ATRIAL FIBRILLATION Status: Acute Qualifiers: Atrial fibrillation type: paroxysmal Qualified Code(s): I48.0 - Paroxysmal atrial fibrillation Comment: rate controlled (3) Chest pain Code(s): R07.9 - CHEST PAIN, UNSPECIFIED Status: Resolved Qualifiers: Chest pain type: unspecified Qualified Code(s): R07.9 - Chest pain, unspecified (4) ESRD (end stage renal disease) on dialysis Code(s): N18.6 - END STAGE RENAL DISEASE; Z99.2 - DEPENDENCE ON RENAL DIALYSIS Status: Chronic (5) Herpes zoster Code(s): B02.9 - ZOSTER WITHOUT COMPLICATIONS Status: Acute Comment: over the occipital area from 3 weeks, is resolving and almost crusted except one area (6) HTN (hypertension) Code(s): I10 - ESSENTIAL (PRIMARY) HYPERTENSION Status: Chronic Qualifiers: Hypertension type: essential hypertension Qualified Code(s): I10 - Essential (primary) hypertension (7) Volume overload Code(s): E87.70 - FLUID OVERLOAD, UNSPECIFIED Status: Resolved - Plan for cath in am if inr is around 1.6, its 3 this morning -: off coumadin from yesterday -: is on coreg, lipitor and small dose lisinopril -: to amb as tolerated -: h/o ?alc abuse * . Review of Systems - Medications/Allergies Allergies/Adverse Reactions: Allergies Allergy/AdvReac Type Severity Reaction Status Date / Time No Known Allergies Allergy Unverified 07/03/18 22:27 Medications: Current Medications Acetaminophen (Tylenol Er (8hr Arthritis Pain)) 1,300 mg PO Q8H PRN PRN Reason: Pain 1-3 Acetaminophen (Tylenol) 650 mg PO Q4H PRN PRN Reason: Headache/Fever/Mild Pain (1-3) Acetaminophen/Codeine Phosphate (Tylenol #3) 1 tab PO Q6H PRN PRN Reason: Pain 4-6 Aspirin (Aspirin Chewable) 81 mg PO DAILY [facility] Last Admin: 07/08/18 09:01 Dose: 81 mg Atorvastatin Calcium (Lipitor) 10 mg PO QPM [facility] Last Admin: 07/07/18 21:28 Dose: 10 mg Calcium Acetate (Phoslo) 2,001 mg PO TID-[facility] Last Admin: 07/08/18 11:36 Dose: 2,001 mg Carvedilol (Coreg) 12.5 mg PO BID-[facility] Last Admin: 07/08/18 09:02 Dose: 12.5 mg Famotidine (Pepcid) 20 mg PO DAILY [facility] Last Admin: 07/08/18 09:01 Dose: 20 mg Gabapentin (Neurontin) 100 mg PO BID [facility] Last Admin: 07/08/18 09:02 Dose: 100 mg Heparin Sodium (Porcine) (Heparin 1,000 Units/Ml (10 Ml)) 0 units SLOW IVP WILLCALL [facility] Last Admin: 07/06/18 02:00 Dose: 2,116 unit Lisinopril (Zestril) 2.5 mg PO DAILY [facility] Last Admin: 07/08/18 09:01 Dose: 2.5 mg Sodium Chloride (Flush - Normal Saline) 10 ml IVF PRN PRN PRN Reason: Saline Flush Last Admin: 07/07/18 21:28 Dose: 10 ml
[2018-07-08] MEDS: Atorvastatin Calcium 10 MG TAB PO SCH (22:14)
[2018-07-09 05:25] LABS: Prothrombin Time 42.2 SEC (12.0-14.7)
[2018-07-09 05:28] LABS: INR-International Normal Ratio 4.4
--- NOTE | 2018-07-09 07:48 | PRG ---
DATE OF SERVICE: SUBJECTIVE: Patient was seen and examined at bedside and overnight events noted. Patient denies any shortness of breath or chest pain or palpitation. No history of nausea or vomiting or diarrhea or fever or chills or cramps. OBJECTIVE: GENERAL: This is a well-built male in no acute distress. VITAL SIGNS: Temperature . Heart rate 81. Respiratory rate blood pressure 138/79. HEENT: Atraumatic, normocephalic. Oral mucosa is moist NECK: Supple. CARDIOVASCULAR: S1, S2 heard. Rate and rhythm regular. RESPIRATORY: Clear to auscultation. GASTROINTESTINAL: Abdomen is soft. MUSCULOSKELETAL: No tenderness. No edema. DERMATOLOGIC: No skin rash. NEUROLOGIC: Alert and awake and oriented X3. No focal neurologic deficits. Moving all the extremities. PSYCHIATRIC: Mood and affect normal. LABORATORY DATA: Potassium is 4.7, BUN is 44,creatinine is ASSESSMENT AND PLAN: 1. End-stage renal disease. We will continue hemodialysis. 2. Edema, remove fluids. 3. Hypertension, stable. 4. Anemia. Monitor hemoglobin. We will continue on dialysis . Job ID: [id number]
--- NOTE | 2018-07-09 07:49 | PRG ---
DATE OF SERVICE: 07/08/2018 SUBJECTIVE: Patient was seen and examined at bedside and overnight events noted. Patient denies any shortness of breath or chest pain or palpitation. No history of nausea or vomiting or diarrhea or fever or chills or cramps. OBJECTIVE: GENERAL: This is a well-built male, in no apparent distress. VITAL SIGNS: Temperature 97.9. Heart rate 97. Respiratory rate 16. Blood pressure 123/66. HEENT: Atraumatic, normocephalic. Oral mucosa is moist. NECK: Supple. CARDIOVASCULAR: S1, S2 heard. Rate and rhythm regular. RESPIRATORY: Clear to auscultation. GASTROINTESTINAL: Abdomen is soft. MUSCULOSKELETAL: No tenderness. No edema. DERMATOLOGIC: No skin rash. NEUROLOGIC: Alert and awake and oriented X3. No focal neurologic deficits. Moving all the extremities. PSYCHIATRIC: Mood and affect normal. LABORATORY DATA: No labs done today. ASSESSMENT AND PLAN: 1. End-stage renal disease. We will continue on hemodialysis on Monday, , and Monday. 2. Hypertension. 3. Anemia. Plan is to continue dialysis as tolerated on Monday, , and Monday. Job ID: [id number]
[2018-07-09] MEDS: Gabapentin 100 MG CAP PO SCH ×2 (09:17→22:20)
[2018-07-09] MEDS: Carvedilol 6.25 MG TAB PO SCH ×2 (09:17→16:29)
[2018-07-09] MEDS: Lisinopril 2.5 MG TAB PO SCH ×2 (09:17→22:19)
[2018-07-09] MEDS: Famotidine 20 MG TAB PO SCH (09:18)
[2018-07-09] MEDS: Calcium Acetate 667 MG CAP PO SCH ×3 (09:18→16:28)
[2018-07-09 10:11] LABS: Hemoglobin 10.6 g/dL (14.0-18.0); Platelet Count 198 thou/uL (130-400)
--- NOTE | 2018-07-09 11:16 | PDOC.PN ---
- Subjective Encounter Start Date: 07/09/18 Encounter Start Time: 10:00 Subjective: no sob or chest pain -: feels better, no bleeding per rectum -: has a small abscess/folliculitis over left forearm - Objective Resuscitation Status - Order Detail: 07/04/18 01:12 Resuscitation Status Routine Resuscitation Status: FULL: Full Resuscitation MAR Reviewed: Yes Vital Signs & Weight: Vital Signs (12 hours) Temp Pulse Resp BP BP Pulse Ox 07/09/18 09:17 83 07/09/18 08:00 96.5 F L 83 18 106/69 98 07/09/18 04:46 96.5 F L 81 20 135/89 98 Weight Weight 157 lb 3.2 oz I&O: 07/08/18 07/09/18 07/10/18 06:59 06:59 06:59 Intake Total 860 720 Output Total 3500 Balance -2640 720 Result Diagrams: 07/09/18 04:33 07/07/18 04:39 Phys Exam - Physical Examination HEENT: PERRLA, moist MMs Neck: no JVD, supple Respiratory: no wheezing, no rales Cardiovascular: RRR, no significant murmur Gastrointestinal: soft, non-tender, positive bowel sounds Musculoskeletal: no edema, pulses present Neurological: non-focal, moves all 4 limbs Psychiatric: A&O x 3 Dx/Plan (1) Acute exacerbation of CHF (congestive heart failure) Code(s): I50.9 - HEART FAILURE, UNSPECIFIED Status: Acute Qualifiers: Heart failure type: systolic Qualified Code(s): I50.23 - Acute on chronic systolic (congestive) heart failure Comment: ef of 15% (2) Afib Code(s): I48.91 - UNSPECIFIED ATRIAL FIBRILLATION Status: Acute Qualifiers: Atrial fibrillation type: paroxysmal Qualified Code(s): I48.0 - Paroxysmal atrial fibrillation Comment: rate controlled (3) Chest pain Code(s): R07.9 - CHEST PAIN, UNSPECIFIED Status: Resolved Qualifiers: Chest pain type: unspecified Qualified Code(s): R07.9 - Chest pain, unspecified (4) ESRD (end stage renal disease) on dialysis Code(s): N18.6 - END STAGE RENAL DISEASE; Z99.2 - DEPENDENCE ON RENAL DIALYSIS Status: Chronic (5) Herpes zoster Code(s): B02.9 - ZOSTER WITHOUT COMPLICATIONS Status: Acute Comment: over the occipital area from 3 weeks, is resolving and almost crusted except one area (6) HTN (hypertension) Code(s): I10 - ESSENTIAL (PRIMARY) HYPERTENSION Status: Chronic Qualifiers: Hypertension type: essential hypertension Qualified Code(s): I10 - Essential (primary) hypertension (7) Volume overload Code(s): E87.70 - FLUID OVERLOAD, UNSPECIFIED Status: Resolved - Plan inr is 4 this am -: daughter at bedside prefers him staying here to get cath -: continue asp, coreg, lisinopril -: for HD today -: hemostable, is amb in room * . Review of Systems - Medications/Allergies Allergies/Adverse Reactions: Allergies Allergy/AdvReac Type Severity Reaction Status Date / Time No Known Allergies Allergy Unverified 07/03/18 22:27 Medications: Current Medications Acetaminophen (Tylenol Er (8hr Arthritis Pain)) 1,300 mg PO Q8H PRN PRN Reason: Pain 1-3 Acetaminophen (Tylenol) 650 mg PO Q4H PRN PRN Reason: Headache/Fever/Mild Pain (1-3) Acetaminophen/Codeine Phosphate (Tylenol #3) 1 tab PO Q6H PRN PRN Reason: Pain 4-6 Aspirin (Aspirin Chewable) 81 mg PO DAILY [facility] Last Admin: 07/09/18 09:17 Dose: 81 mg Atorvastatin Calcium (Lipitor) 10 mg PO QPM [facility] Last Admin: 07/08/18 22:14 Dose: 10 mg Calcium Acetate (Phoslo) 2,001 mg PO TID-[facility] Last Admin: 07/09/18 09:18 Dose: 2,001 mg Carvedilol (Coreg) 12.5 mg PO BID-[facility] Last Admin: 07/09/18 09:17 Dose: 12.5 mg Famotidine (Pepcid) 20 mg PO DAILY [facility] Last Admin: 07/09/18 09:18 Dose: 20 mg Gabapentin (Neurontin) 100 mg PO BID [facility] Last Admin: 07/09/18 09:17 Dose: 100 mg Heparin Sodium (Porcine) (Heparin 1,000 Units/Ml (10 Ml)) 0 units SLOW IVP [facility]CALL [facility] Last Admin: 07/06/18 02:00 Dose: 2,116 unit Lisinopril (Zestril) 2.5 mg PO BID [facility] Last Admin: 07/09/18 09:17 Dose: 2.5 mg Sodium Chloride (Flush - Normal Saline) 10 ml IVF PRN PRN PRN Reason: Saline Flush Last Admin: 07/08/18 22:15 Dose: 10 ml
--- NOTE | 2018-07-09 12:14 | PRG ---
DATE OF SERVICE: 07/09/2018 SUBJECTIVE: Patient was seen and examined at bedside and overnight events noted. Patient denies any shortness of breath or chest pain or palpitation. No history of nausea or vomiting or diarrhea or fever or chills or cramps. OBJECTIVE: GENERAL: This is a well-built male, in no apparent distress. VITAL SIGNS: Temperature 96.5. Heart rate 82. Respiratory rate . Blood pressure 106/69. HEENT: Atraumatic, normocephalic. Oral mucosa is moist NECK: Supple. CARDIOVASCULAR: S1, S2 heard. Rate and rhythm regular. RESPIRATORY: Clear to auscultation. GASTROINTESTINAL: Abdomen is soft. MUSCULOSKELETAL: No tenderness. No edema. DERMATOLOGIC: No skin rash. NEUROLOGIC: Alert and awake and oriented X3. No focal neurologic deficits. Moving all the extremities. PSYCHIATRIC: Mood and affect normal. LABORATORY DATA: No labs done today. ASSESSMENT AND PLAN: 1. End-stage renal disease. Continue dialysis on Monday, Monday, and Monday. The patient will be switching to Monday, Monday, and Monday. We will have dialysis today. 2. Hypertension, stable. 3. Edema. 4. Anemia. 5. Cardiorenal syndrome. We will follow. Job ID: [id number]
[2018-07-09] MEDS: Atorvastatin Calcium 10 MG TAB PO SCH (23:10)
[2018-07-10 05:19] LABS: INR-International Normal Ratio 3.8; Prothrombin Time 37.5 SEC (12.0-14.7)
[2018-07-10] MEDS: Lisinopril 2.5 MG TAB PO SCH ×2 (10:37→20:52)
[2018-07-10] MEDS: Calcium Acetate 667 MG CAP PO SCH ×3 (10:37→17:10)
[2018-07-10] MEDS: Famotidine 20 MG TAB PO SCH (10:38)
[2018-07-10] MEDS: Gabapentin 100 MG CAP PO SCH ×2 (10:38→20:52)
[2018-07-10] MEDS: Carvedilol 6.25 MG TAB PO SCH ×2 (10:38→17:11)
--- NOTE | 2018-07-10 13:05 | PRG ---
DATE OF SERVICE: 07/10/2018 SUBJECTIVE: A 72-year-old male, being seen for end-stage renal disease. The patient denied any nausea, vomiting, or chest pain. OBJECTIVE: GENERAL: Patient is awake, alert. VITAL SIGNS: breathing 16, and blood pressure 136/70. GENERAL APPEARANCE AND MENTAL STATUS: Fair. HEAD/NECK: Normocephalic. Atraumatic. EYES: EOMI. No deformity. EARS: Clear. No ulcers. NOSE: Intact. No lesions. MOUTH: Clear. No discharge. THROAT: Clear. No exudate. LUNGS: Clear. No crackles. CARDIAC: S1, S2. No rub. ABDOMEN: Benign. Bowel sounds positive. GENITALIA/RECTUM: Good absent. BACK/EXTREMITIES: Edema 0+. NEUROLOGICAL: Alert and motor intact. SKIN: LYMPHATICS: LABORATORY DATA: Hemoglobin 9.6. ASSESSMENT AND PLAN: 1. Chronic kidney disease, continue hemodialysis. 2. Hypertension, stable. 3. Anemia, stable. 4. Medications based on glomerular filtration rate are appropriate. Job ID: [id number]
--- NOTE | 2018-07-10 15:37 | PDOC.PN ---
- Subjective Encounter Start Date: 07/10/18 Encounter Start Time: 08:45 Subjective: no chest pain or sob - Objective Resuscitation Status - Order Detail: 07/04/18 01:12 Resuscitation Status Routine Resuscitation Status: FULL: Full Resuscitation MAR Reviewed: Yes Vital Signs & Weight: Vital Signs (12 hours) Temp Pulse Resp BP BP BP Pulse Ox 07/10/18 11:43 97.5 F L 97 16 147/96 H 95 07/10/18 10:38 136/70 07/10/18 10:37 92 07/10/18 08:50 97.4 F L 92 16 138/85 99 07/10/18 05:00 97.7 F 87 15 127/79 99 Weight Weight 157 lb 4.8 oz I&O: 07/09/18 07/10/18 07/11/18 06:59 06:59 06:59 Intake Total 720 870 420 Output Total 0 Balance 720 870 420 Result Diagrams: 07/09/18 04:33 07/07/18 04:39 Phys Exam - Physical Examination HEENT: PERRLA, moist MMs Neck: no JVD, supple Respiratory: no wheezing, no rales Cardiovascular: RRR, no significant murmur Gastrointestinal: soft, no distention, positive bowel sounds Musculoskeletal: no edema, pulses present Neurological: non-focal, moves all 4 limbs Psychiatric: normal affect, A&O x 3 Dx/Plan (1) Acute exacerbation of CHF (congestive heart failure) Code(s): I50.9 - HEART FAILURE, UNSPECIFIED Status: Acute Qualifiers: Heart failure type: systolic Qualified Code(s): I50.23 - Acute on chronic systolic (congestive) heart failure Comment: ef of 15% (2) Afib Code(s): I48.91 - UNSPECIFIED ATRIAL FIBRILLATION Status: Acute Qualifiers: Atrial fibrillation type: paroxysmal Qualified Code(s): I48.0 - Paroxysmal atrial fibrillation Comment: rate controlled (3) Chest pain Code(s): R07.9 - CHEST PAIN, UNSPECIFIED Status: Resolved Qualifiers: Chest pain type: unspecified Qualified Code(s): R07.9 - Chest pain, unspecified (4) ESRD (end stage renal disease) on dialysis Code(s): N18.6 - END STAGE RENAL DISEASE; Z99.2 - DEPENDENCE ON RENAL DIALYSIS Status: Chronic (5) Herpes zoster Code(s): B02.9 - ZOSTER WITHOUT COMPLICATIONS Status: Acute Comment: over the occipital area from 3 weeks, is resolving and almost crusted except one area (6) HTN (hypertension) Code(s): I10 - ESSENTIAL (PRIMARY) HYPERTENSION Status: Chronic Qualifiers: Hypertension type: essential hypertension Qualified Code(s): I10 - Essential (primary) hypertension (7) Volume overload Code(s): E87.70 - FLUID OVERLOAD, UNSPECIFIED Status: Resolved - Plan inr is 3.8, cath when inr is <2 -: hemostable -: continue asp, coreg, lisinopril and lipitor -: to amb as tolerated -: shingles is almost crusted over occiput area * . Review of Systems - Medications/Allergies Allergies/Adverse Reactions: Allergies Allergy/AdvReac Type Severity Reaction Status Date / Time No Known Allergies Allergy Unverified 07/03/18 22:27 Medications: Current Medications Acetaminophen (Tylenol Er (8hr Arthritis Pain)) 1,300 mg PO Q8H PRN PRN Reason: Pain 1-3 Acetaminophen (Tylenol) 650 mg PO Q4H PRN PRN Reason: Headache/Fever/Mild Pain (1-3) Acetaminophen/Codeine Phosphate (Tylenol #3) 1 tab PO Q6H PRN PRN Reason: Pain 4-6 Aspirin (Aspirin Chewable) 81 mg PO DAILY [facility] Last Admin: 07/10/18 10:38 Dose: 81 mg Atorvastatin Calcium (Lipitor) 10 mg PO QPM [facility] Last Admin: 07/09/18 23:10 Dose: 10 mg Calcium Acetate (Phoslo) 2,001 mg PO TID-[facility] Last Admin: 07/10/18 11:54 Dose: 2,001 mg Carvedilol (Coreg) 12.5 mg PO BID-[facility] Last Admin: 07/10/18 10:38 Dose: 12.5 mg Famotidine (Pepcid) 20 mg PO DAILY [facility] Last Admin: 07/10/18 10:38 Dose: 20 mg Gabapentin (Neurontin) 100 mg PO BID [facility] Last Admin: 07/10/18 10:38 Dose: 100 mg Heparin Sodium (Porcine) (Heparin 1,000 Units/Ml (10 Ml)) 0 units SLOW IVP [facility]CALL [facility] Last Admin: 07/06/18 02:00 Dose: 2,116 unit Lisinopril (Zestril) 2.5 mg PO BID [facility] Last Admin: 07/10/18 10:37 Dose: 2.5 mg Sodium Chloride (Flush - Normal Saline) 10 ml IVF PRN PRN PRN Reason: Saline Flush Last Admin: 07/09/18 22:20 Dose: 10 ml
[2018-07-10] MEDS: Atorvastatin Calcium 10 MG TAB PO SCH (20:52)
[2018-07-11 06:13] LABS: Prothrombin Time 41.5 SEC (12.0-14.7)
[2018-07-11 06:14] LABS: INR-International Normal Ratio 4.3
[2018-07-11] MEDS: Famotidine 20 MG TAB PO SCH (08:14)
[2018-07-11] MEDS: Carvedilol 6.25 MG TAB PO SCH ×2 (08:14→19:31)
[2018-07-11] MEDS: Gabapentin 100 MG CAP PO SCH ×2 (08:15→21:19)
[2018-07-11] MEDS: Lisinopril 2.5 MG TAB PO SCH ×2 (08:15→21:19)
[2018-07-11] MEDS: Calcium Acetate 667 MG CAP PO SCH ×3 (10:16→19:31)
--- NOTE | 2018-07-11 10:18 | RAD ---
SINGLE VIEW OF THE CHEST: Comparison: 07-06-18 History: Status post CABG. FINDINGS: Single view of the chest shows an enlarged cardiomediastinal silhouette with atherosclerotic calcific ations in the aorta. The central venous catheter is unchanged in position. There is no evidence of co nsolidation. There appears to be a small right pleural effusion. IMPRESSION: 1. Cardiomegaly. 2. Right pleural effusion. POS: [facility]
[2018-07-11 10:56] LABS: Hemoglobin 10.7 g/dL (14.0-18.0); Platelet Count 199 thou/uL (130-400)
--- NOTE | 2018-07-11 15:36 | PDOC.PN ---
- Subjective Encounter Start Date: 07/11/18 Encounter Start Time: 15:34 Subjective: feels well. denies nay CP/SOB/leg swelling - Objective Resuscitation Status - Order Detail: 07/04/18 01:12 Resuscitation Status Routine Resuscitation Status: FULL: Full Resuscitation MAR Reviewed: Yes Vital Signs & Weight: Vital Signs (12 hours) Temp Pulse Resp BP BP BP Pulse Ox 07/11/18 12:00 97.4 F L 92 21 H 134/83 99 07/11/18 08:15 86 136/82 07/11/18 08:14 136/82 07/11/18 08:00 97.3 F L 86 20 136/82 97 07/11/18 07:35 100 07/11/18 05:00 97.3 F L 89 16 121/75 100 Weight Weight 162 lb 9.6 oz I&O: 07/10/18 07/11/18 07/12/18 06:59 06:59 06:59 Intake Total 870 1510 Output Total 0 0 Balance 870 1510 Result Diagrams: 07/11/18 10:35 07/07/18 04:39 Additional Labs: Laboratory Tests 07/03/18 07/03/18 07/03/18 20:17 20:17 20:17 INR Sodium 132 L Troponin I 0.087 H B-Natriuretic Peptide 4518.3 H Digoxin 07/03/18 07/04/18 07/04/18 23:20 02:14 02:14 INR Sodium Troponin I 0.066 H 0.084 H B-Natriuretic Peptide Digoxin Less than 0.15 L 07/04/18 07/05/18 07/06/18 02:14 08:59 04:27 INR 1.4 1.3 Sodium 132 L Troponin I B-Natriuretic Peptide Digoxin 07/07/18 07/07/18 07/08/18 04:39 04:39 05:32 INR 2.0 3.1 Sodium 127 L Troponin I B-Natriuretic Peptide Digoxin 07/09/18 07/10/18 07/11/18 04:47 04:56 05:53 INR 4.4 H* 3.8 4.3 H* Sodium Troponin I B-Natriuretic Peptide Digoxin Phys Exam - Physical Examination Constitutional: NAD HEENT: PERRLA, moist MMs, sclera anicteric, oral pharynx no lesions Neck: no nodes, no JVD, supple, full ROM Respiratory: no wheezing, no rales, no rhonchi, clear to auscultation bilateral Cardiovascular: RRR, no significant murmur, no rub Gastrointestinal: soft, non-tender, no distention, positive bowel sounds Musculoskeletal: no edema, pulses present Neurological: non-focal, normal sensation, moves all 4 limbs Psychiatric: normal affect, A&O x 3 Skin: no rash Dx/Plan (1) Acute exacerbation of CHF (congestive heart failure) Code(s): I50.9 - HEART FAILURE, UNSPECIFIED Status: Acute Qualifiers: Heart failure type: systolic Qualified Code(s): I50.23 - Acute on chronic systolic (congestive) heart failure Comment: ef of 15% (2) Warfarin-induced coagulopathy Code(s): D68.32 - HEMORRHAGIC DISORD D/T EXTRINSIC CIRCULATING ANTICOAGULANTS; T45.515A - ADVERSE EFFECT OF ANTICOAGULANTS, INITIAL ENCOUNTER Status: Acute (3) Afib Code(s): I48.91 - UNSPECIFIED ATRIAL FIBRILLATION Status: Acute Qualifiers: Atrial fibrillation type: paroxysmal Qualified Code(s): I48.0 - Paroxysmal atrial fibrillation Comment: rate controlled,on coreg (4) Herpes zoster Code(s): B02.9 - ZOSTER WITHOUT COMPLICATIONS Status: Acute Comment: over the occipital area from 3 weeks, is resolving and almost crusted except one area (5) Volume overload Code(s): E87.70 - FLUID OVERLOAD, UNSPECIFIED Status: Resolved Comment: Fluid removal w dialysis as tolerated (6) ESRD (end stage renal disease) on dialysis Code(s): N18.6 - END STAGE RENAL DISEASE; Z99.2 - DEPENDENCE ON RENAL DIALYSIS Status: Chronic (7) HTN (hypertension) Code(s): I10 - ESSENTIAL (PRIMARY) HYPERTENSION Status: Chronic Qualifiers: Hypertension type: essential hypertension Qualified Code(s): I10 - Essential (primary) hypertension (8) Cardiomyopathy Code(s): I42.9 - CARDIOMYOPATHY, UNSPECIFIED Status: Acute Comment: EF 10-15 % (9) Severe tricuspid regurgitation by prior echocardiogram Code(s): I07.1 - RHEUMATIC TRICUSPID INSUFFICIENCY Status: Chronic - Plan plan discussed w/ family, PT/OT, respiratory therapy, incentive spirometry, out of bed/ambulate, DVT proph w/SCDs Cath deferred d/t coaumdin coagulopathy.discussed w Cardiology & Pt/family -: Hemodynamically stable.cont meds as below.On ASA,statin,BB,tena-i -: Lifevest to be arranged fo rDc for severe reduced EF.Pt educated extensivel -: Coumadin clinic & PCP set up .HF coordinator he;antonella.appreciate input -: OP HD set up & HF clinic set up done for DC * .Daily INR * likley DC in next 24 hours w Lifevest if stable and OP set up for PT/INR check is done. * Contact isolation for zoster.No opthalmic ulcers noted. Review of Systems - Review of Systems Constitutional: negative: fever, chills, sweats, weakness, malaise, other ENT: negative: Ear Pain, Ear Discharge, Nose Pain, Nose Discharge, Nose Congestion, Mouth Pain, Mouth Swelling, Throat Pain, Throat Swelling, Other Respiratory: negative: Cough, Dry, Shortness of Breath, Hemoptysis, SOB with Excertion, Pleuritic Pain, Sputum, Wheezing Cardiovascular: negative: chest pain, palpitations, orthopnea, paroxysmal nocturnal dyspnea, edema, light headedness, other Gastrointestinal: negative: Nausea, Vomiting, Abdominal Pain, Diarrhea, Constipation, Melena, Hematochezia, Other Genitourinary: negative: Dysuria, Frequency, Incontinence, Hematuria, Retention , Other Musculoskeletal: negative: Neck Pain, Shoulder Pain, Arm Pain, Back Pain, Hand Pain, Leg Pain, Foot Pain, Other Neurological: negative: Weakness, Numbness, Incoordination, Change in Speech, Confusion, Seizures, Other - Medications/Allergies Allergies/Adverse Reactions: Allergies Allergy/AdvReac Type Severity Reaction Status Date / Time No Known Allergies Allergy Unverified 07/03/18 22:27 Medications: Current Medications Acetaminophen (Tylenol Er (8hr Arthritis Pain)) 1,300 mg PO Q8H PRN PRN Reason: Pain 1-3 Acetaminophen (Tylenol) 650 mg PO Q4H PRN PRN Reason: Headache/Fever/Mild Pain (1-3) Acetaminophen/Codeine Phosphate (Tylenol #3) 1 tab PO Q6H PRN PRN Reason: Pain 4-6 Aspirin (Aspirin Chewable) 81 mg PO DAILY [facility] Last Admin: 07/11/18 08:15 Dose: 81 mg Atorvastatin Calcium (Lipitor) 10 mg PO QPM [facility] Last Admin: 07/10/18 20:52 Dose: 10 mg Calcium Acetate (Phoslo) 2,001 mg PO TID-[facility] Last Admin: 07/11/18 14:06 Dose: 2,001 mg Carvedilol (Coreg) 12.5 mg PO BID-[facility] Last Admin: 07/11/18 08:14 Dose: 12.5 mg Famotidine (Pepcid) 20 mg PO DAILY [facility] Last Admin: 07/11/18 08:14 Dose: 20 mg Gabapentin (Neurontin) 100 mg PO BID [facility] Last Admin: 07/11/18 08:15 Dose: 100 mg Heparin Sodium (Porcine) (Heparin 1,000 Units/Ml (10 Ml)) 0 units SLOW IVP [facility] Last Admin: 07/06/18 02:00 Dose: 2,116 unit Lisinopril (Zestril) 2.5 mg PO BID [facility] Last Admin: 07/11/18 08:15 Dose: 2.5 mg Sodium Chloride (Flush - Normal Saline) 10 ml IVF PRN PRN PRN Reason: Saline Flush Last Admin: 07/09/18 22:20 Dose: 10 ml
--- NOTE | 2018-07-11 18:14 | PRG ---
DATE OF SERVICE: 07/11/2018 SUBJECTIVE: A 72-year-old gentleman being seen for end-stage renal disease. The patient denies nausea, vomiting, or chest pain. OBJECTIVE: GENERAL: The patient is awake, alert, in no acute distress. VITAL SIGNS: breathing 16, blood pressure 156/82. GENERAL APPEARANCE AND MENTAL STATUS: Fair. HEAD/NECK: Normocephalic. Atraumatic. EYES: EOMI. No deformity. EARS: Clear. No ulcers. NOSE: Intact. No lesions. MOUTH: Clear. No discharge. THROAT: Clear. No exudate. LUNGS: Clear. No crackles. CARDIAC: S1, S2. No rub. ABDOMEN: Benign. Bowel sounds positive. GENITALIA/RECTUM: Good absent. BACK/EXTREMITIES: Edema 0+. NEUROLOGICAL: Alert and motor intact. ASSESSMENT AND PLAN: 1. disease, continue hemodialysis. 2. Hypertension, stable. 3. Anemia, stable. 4. Medications based on glomerular filtration rate are appropriate. Job ID: [id number]
[2018-07-11] MEDS: Atorvastatin Calcium 10 MG TAB PO SCH (21:19)
[2018-07-12 05:21] LABS: Anion Gap 10 mmol/L (10-20); BUN (Urea Nitrogen) 28 mg/dL (8.4-25.7); Calc. Creatinine Clearance 15 mL/min (70-130); Calcium 9.1 mg/dL (7.8-10.44); Carbon Dioxide 31 mmol/L (23-31); Chloride 94 mmol/L (98-107); Estimated GFR-MDRD 14; Glucose 94 mg/dL (83-110); Phosphorus 3.2 mg/dL (2.3-4.7); Sodium 131 mmol/L (136-145)
[2018-07-12 05:23] LABS: INR-International Normal Ratio 3.8; Prothrombin Time 37.5 SEC (12.0-14.7)
[2018-07-12] MEDS: Calcium Acetate 667 MG CAP PO SCH ×3 (09:14→16:37)
[2018-07-12] MEDS: Gabapentin 100 MG CAP PO SCH (09:17)
[2018-07-12] MEDS: Carvedilol 6.25 MG TAB PO SCH ×2 (09:17→16:38)
[2018-07-12] MEDS: Lisinopril 2.5 MG TAB PO SCH (09:17)
[2018-07-12] MEDS: Famotidine 20 MG TAB PO SCH (09:17)
--- NOTE | 2018-07-12 12:10 | PRG ---
DATE OF SERVICE: 07/12/2018 SUBJECTIVE: A 72-year-old gentleman, being seen for end-stage renal disease. The patient denies nausea, vomiting, or chest pain. OBJECTIVE: GENERAL: The patient is awake, alert. VITAL SIGNS: Pulse 89, breathing 16, and blood pressure 137/90. GENERAL APPEARANCE AND MENTAL STATUS: Fair. HEAD/NECK: Normocephalic. Atraumatic. EYES: EOMI. No deformity. EARS: Clear. No ulcers. NOSE: Intact. No lesions. MOUTH: Clear. No discharge. THROAT: Clear. No exudate. LUNGS: Clear. No crackles. CARDIAC: S1, S2. No rub. ABDOMEN: Benign. Bowel sounds positive. GENITALIA/RECTUM: Good absent. BACK/EXTREMITIES: Edema 0+. NEUROLOGICAL: Alert and motor intact. SKIN: LYMPHATICS: LABORATORY DATA: Reviewed. ASSESSMENT AND PLAN: 1. chronic kidney disease, continue hemodialysis. 2. Hypertension . 3. Anemia, stable. 4. Medications based on GFR are appropriate. Job ID: [id number]
[2018-07-12] MEDS ORDERED: PROPOFOL 0 ML ONE (12:33)
[2018-07-12 12:46] VITALS: BMI 23.9
[2018-07-12] MEDS ORDERED: Ketamine 50 MG/ML (10ML VIAL) ONE (12:52)
[2018-07-12] MEDS ORDERED: Heparin 10,000 UNITS/ 10 ML VIAL ONE (14:56)
[2018-07-12 16:32] VITALS: TEMP 98.4
[2018-07-12 16:38] VITALS: BP 136/82
--- NOTE | 2018-07-12 22:10 | ECHO ---
72-year-old gentleman with paroxysmal atrial fibrillation. DESCRIPTION OF PROCEDURE: The patient was taken to the PACU. The patient was sedated by anesthesiology. A transesophageal pro be was placed into the distal esophagus and stomach. Echocardiographic images were obtained. The tr ansesophageal probe was removed. FINDINGS: 1. Severe decrease in left ventricular systolic function with global hypokinesis. 2. The left ventricle is markedly dilated. 3. Biatrial enlargement. 4. The right ventricle is enlarged. 5. Moderate mitral regurgitation. 6. Severe tricuspid regurgitation. 7. Thrombus is noted in the left atrial appendage with marked spontaneous contrast. 8. Atherosclerotic debris in the descending aorta. IMPRESSION: Formed thrombus is noted in the left atrial appendage with spontaneous contrast throughout the left a trium.
--- NOTE | 2018-07-13 13:07 | DIS ---
DATE OF ADMISSION: 07/03/2018 DATE OF DISCHARGE: 07/12/2018 Please note that no H and P is available for me to review as of yet. DISCHARGE DIAGNOSES: 1. Acute systolic congestive heart failure. 2. Warfarin-induced coagulopathy. 3. Paroxysmal atrial fibrillation. 4. Herpes zoster. 5. Volume overload. 6. End-stage renal disease, on hemodialysis. 7. Hypertension. 8. Severe cardiomyopathy with EF of 10% to 15%. 9. Severe tricuspid regurgitation by echo. DISCHARGE MEDICATIONS: 1. Zocor 20 mg daily. 2. Gabapentin 100 mg p.o. b.i.d. 3. Calcium acetate t.i.d. 4. Warfarin 1 mg daily. The patient is instructed very strongly to not start it until he is seen by the Coumadin Clinic in 3 days. 5. Lisinopril 2.5 mg p.o. b.i.d. 6. Carvedilol 12.5 mg p.o. b.i.d. 7. Aspirin 81 mg daily. IN-HOUSE CONSULTATION: 1. Cardiology, Dr. Reyes Avila. 2. Nephrology, Dr. Redman and Dr. Prakash. PROCEDURES DONE IN HOSPITAL: 1. Transthoracic echocardiogram, which shows EF of 10% to 15% with moderately dilated left atrium and severe tricuspid regurgitation. 2. Maintenance hemodialysis. 3. Transesophageal echocardiogram. It reportedly showed multiple clots in his heart, but I do not have that report available to me. According to the report available in the [facility], he had thickened aortic valve leaflets and severe decrease in left ventricular systolic function. Reportedly, he had an apneic episode during the procedure and the procedure was aborted. 4. Multiple chest x-rays. 5. Placement of a central line by Dr. Montiel on 07/07/2018, the left internal jugular vein. HISTORY OF PRESENTING ILLNESS: Mr. Huitron is a 72-year-old male with known history of end-stage renal disease on hemodialysis, who presented to the emergency room with complaints of chest discomfort. He was noticed to have elevated BNP and was admitted for further evaluation. No H and P is available. Reportedly, there was atrial fibrillation which was new for him, found on the EKG done in the ER. Cardiology was consulted as well as Nephrology for maintenance hemodialysis. Echocardiogram was ordered. HOSPITAL COURSE: Echocardiogram showed severe reduction in ejection fraction. For his atrial fibrillation, the patient was started and given one dose of Coumadin which caused severe Coumadin coagulopathy. It was initially thought that he would undergo transesophageal echocardiogram and cardioversion. He did go down, but apparently had an apneic episode and was found to have some clot in the heart. These are not documented in the report in [facility]. He did not undergo cardioversion and was sent back. His INR remained high and it was monitored without the Coumadin in the hospital. It started to gradually come down and he was set up with Coumadin Clinic for outpatient followup. Dr. Avila wanted to do a cardiac catheterization for this gentleman, but unfortunately because of the high INR it was not able to be done. The plan at this time is to get it done in the outpatient setting after his INR is therapeutic. A LifeVest is being ordered for this patient for severe cardiomyopathy of unknown origin and will be delivered to the room prior to his discharge. As of this morning, he has been cleared for discharge by Cardiology with outpatient followup. Cardiac rehab as well as heart failure clinic set up has been done for him. His dialysis has been changed to [place] as he lives in [place] and was going to [place] for dialysis, but because of the need for primary care physician locally in the area for Coumadin Clinic followup, his dialysis center has been changed to [place]. I have personally discussed the details with his niece, who he lives with and she takes care of him as well as with his daughter Ms. Hayward. They all verbalized understanding. He was seen and examined prior to discharge. PHYSICAL EXAMINATION: VITAL SIGNS: This morning; temperature 97.3, pulse of 74, respirations 18, saturating 95% on room air, and blood pressure 146/88. GENERAL: No acute distress. Awake, alert, and oriented x3. His herpes zoster lesion on the right side of the scalp are all crusted over. CHEST: Clear to auscultation bilaterally. HEART: Rate and rhythm is regular. EXTREMITIES: No extremity swelling. LABORATORY DATA: Hemoglobin 10.7 with hematocrit of 34. BUN 28 and creatinine 4.23. DISPOSITION: He will follow up with Dr. Prakash and Dr. Redman for dialysis and Dr. Avila for cardiac catheterization and possible cardioversion in the outpatient setting. Coumadin per Coumadin Clinic with PT/INR follow up closely. Establish care with [facility] in [place]. His appointment is on 07/16/2018 at 01:15 p.m. His [facility] appointment is on 07/13/2018 at 01:45 p.m. His appointment with Dr. Avila is on 08/02/2018 at 01:00 p.m. DISCHARGE TIME: 40 minutes. Job ID: [id number]
--- NOTE | 2018-07-16 08:45 | HP ---
CHIEF COMPLAINT: Chest discomfort. HISTORY OF PRESENT ILLNESS: This is a 72-year-old male with past medical history significant for end-stage renal disease, hypertension, who presents with indigestion. The patient states that he has been having indigestion and chest discomfort, and the patient does have a long history of hypertension, end-stage renal disease. The patient reports that in the past couple of days, after he eats, he gets this indigestion. Therefore, the patient went to the ED to be evaluated. During the evaluation, the patient's BNP was found to be elevated, and the patient was admitted for further evaluation. At this point, on questioning, the patient denies any chest discomfort, shortness of breath, palpitations, abdominal pain, nausea, vomiting, orthopnea, paroxysmal nocturnal dyspnea, dysuria, increase in frequency with urination, hematochezia, or melena. REVIEW OF SYSTEMS: At this time, the patient denies all review of systems. PAST MEDICAL HISTORY: End-stage renal disease, hypertension. FAMILY HISTORY: Reviewed and noncontributory to this visit. PAST SURGICAL HISTORY: Abdominal surgery. MEDICATIONS: Lisinopril 20 daily, losartan 50 daily, gabapentin 100 t.i.d., Zocor 20 at night. ALLERGIES: NO KNOWN DRUG ALLERGIES. SOCIAL HISTORY: The patient denies alcohol use. Denies any illicit drug use. Denies any smoking history. PHYSICAL EXAMINATION: VITAL SIGNS: Blood pressure 160/77, pulse of 90, respiratory rate of 16, temperature of 98.0, O2 saturation of 100. GENERAL: The patient is alert and oriented x3, not in acute distress. HEENT: Normocephalic, atraumatic. Pupils are equally round and reactive to light. Extraocular movements are intact. No scleral icterus. Mouth, mucous membranes are moist. NECK: Trachea is midline. Full range of motion. No JVD. LUNGS: Clear to auscultation bilaterally. No wheezing, no rales, no rhonchi appreciated. CARDIAC: AFib with RVR. No murmurs appreciated. ABDOMEN: No peritoneal signs. Soft, nontender. EXTREMITIES: The patient has 5/5 upper extremity strength and 5/5 lower extremity strength. Good radial pulses bilaterally. SKIN: Dry, dusky in color. NEUROLOGIC: Cranial nerves 2 through 12 grossly intact. DIAGNOSTIC DATA: EKG showed AFib with RVR of 132. LABORATORY DATA: WBC is 6.5, hemoglobin is 12.2, hematocrit is 38.0, platelet count is 213. Sodium is 132, potassium is 5.2, chloride is 96, carbon dioxide is 25, anion gap of 16, BUN is 40, creatinine is 5.94, GFR is 9, glucose is 105. Alkaline phosphatase is 168, AST is 17 and ALT is 13. BNP is 4518. Troponin x1 is 0.087. ASSESSMENT AND PLAN: This is a 72-year-old male being admitted for, 1. New onset atrial fibrillation. At this point, the patient has been started on anticoagulation. We have consulted Cardiology. We will follow up with Cardiology regarding any further recommendations. We are going to continue the patient on his home dose of lisinopril, and we will follow up with Cardiology regarding any further treatments. Echo has been ordered. We will also follow up on echo result. We will follow up with morning labs. 2. Severe cardiomyopathy. Cardiology is on consult. We will follow up with their recommendation. 3. Aortic stenosis. We will follow up with Cardiology's recommendations. 4. Hypertension. We will monitor the patient's blood pressure, and we will treat the patient's blood pressure accordingly. 5. End-stage renal disease. Nephrology has been consulted. We will follow up with Nephrology regarding any further treatments. 6. Deep vein thrombosis/gastrointestinal prophylaxis. Job ID: [id number]
== END 2018-07-12 18:41 | disposition home or self-care (01) | DRG 291 ==
LOC: ERS 19:25 → 2NO 21:15
PROVIDERS: ADMIT Internal Medicine; ATTEND Internal Medicine
PROC: 5A1D70Z Performance of Urinary Filtration, Intermittent, Less than 6 Hours Per Day (ICD-10-PCS; 2018-07-05)
PROC: 05HN33Z Insertion of Infusion Device into Left Internal Jugular Vein, Percutaneous Approach (ICD-10-PCS; 2018-07-06)
PROC: B544ZZA Ultrasonography of Left Jugular Veins, Guidance (ICD-10-PCS; 2018-07-06)
PROC: 5A1D70Z Performance of Urinary Filtration, Intermittent, Less than 6 Hours Per Day (ICD-10-PCS; 2018-07-07)
PROC: 5A1D70Z Performance of Urinary Filtration, Intermittent, Less than 6 Hours Per Day (ICD-10-PCS; 2018-07-09)
PROC: 5A1D70Z Performance of Urinary Filtration, Intermittent, Less than 6 Hours Per Day (ICD-10-PCS; 2018-07-11)
PROC: B246ZZ4 Ultrasonography of Right and Left Heart, Transesophageal (ICD-10-PCS; principal; 2018-07-12)
DX: I13.2 Hypertensive heart and chronic kidney disease with heart failure and with stage 5 chronic kidney disease, or end stage renal disease (principal); I50.23 Acute on chronic systolic (congestive) heart failure; N18.6 End stage renal disease; D68.32 Hemorrhagic disorder due to extrinsic circulating anticoagulants; I48.0 Paroxysmal atrial fibrillation; Z99.2 Dependence on renal dialysis; B02.9 Zoster without complications; R07.9 Chest pain, unspecified; L73.9 Follicular disorder, unspecified; T45.515A Adverse effect of anticoagulants, initial encounter; I42.9 Cardiomyopathy, unspecified; I07.1 Rheumatic tricuspid insufficiency; I25.10 Atherosclerotic heart disease of native coronary artery without angina pectoris; G62.9 Polyneuropathy, unspecified; D64.9 Anemia, unspecified; I35.0 Nonrheumatic aortic (valve) stenosis
CPT/HCPCS: 36415; 71045; 80048; 80053; 80162; 82553; 83690; 83880; 84100; 84443; 84484; 85014; 85018; 85025; 85049; 85610; 85730; 86580; 86704; 86706; 86803; 87340; 90471; 90670; 90935; 92960; 93005; 93306; 93312; 93798; 96365; 96372; 96375; C9113; G0009; G0257; J1644; J1650; J2001; J2704; S0028

== ENCOUNTER 2018-08-17 05:48 | Day surgery (SDC) | payer MEDICARE, OTHER ==
[2018-08-17 07:13] LABS: INR-International Normal Ratio 1.9; PTT 34.9 SEC (22.9-36.1); Prothrombin Time 21.4 SEC (12.0-14.7)
[2018-08-17] MEDS ORDERED: PROPOFOL 20 ML ONE (07:17)
[2018-08-17 07:26] LABS: Anion Gap 16 mmol/L (10-20); BUN (Urea Nitrogen) 19 mg/dL (8.4-25.7); Calc. Creatinine Clearance 0 mL/min (70-130); Calcium 9.5 mg/dL (7.8-10.44); Carbon Dioxide 26 mmol/L (23-31); Chloride 101 mmol/L (98-107); Estimated GFR-MDRD 12; Glucose 86 mg/dL (83-110); Potassium 4.6 mmol/L (3.5-5.1); Sodium 138 mmol/L (136-145)
[2018-08-17] MEDS ORDERED: KETAMINE 100 MG/ML (5ML VIAL) ONE (08:19)
[2018-08-17] MEDS ORDERED: PROPOFOL 200 MG/20 ML VIAL ONE (10:47)
--- NOTE | 2018-08-17 13:51 | ECHO ---
TRANSESOPHAGEAL ECHOCARDIOGRAM: DATE OF PROCEDURE: 08/17/18 INDICATION: Patient is a 72-year-old gentleman with a history of paroxysmal atrial fibrillation. DESCRIPTION OF PROCEDURE: The patient was taken to the PACU. The patient was sedated by anesthesiology. A transesophageal probe was placed in the distal esophagus and stomach. Echocardiographic images were obtained. The transesophageal probe was removed. FINDINGS: 1. Severe decrease in left ventricular systolic function. 2. Left atrial enlargement. 3. Marked right atrial enlargement. 4. Right ventricular dilatation. 5. Severe tricuspid regurgitation. 6. Mild mitral regurgitation. 7. Spontaneous contrast noted throughout the left atrium and left atrial appendage. 8. Atherosclerotic debris in descending aorta. IMPRESSION: Spontaneous contrast noted throughout the left atrium and left atrial appendage.
--- NOTE | 2018-08-17 17:02 | EKG ---
Test Reason : PREOP KARTHIKEYAN/CARDIOVERS Blood Pressure : / mmHG Vent. Rate : 087 BPM Atrial Rate : 089 BPM P-R Int : 000 ms QRS Dur : 092 ms QT Int : 360 ms P-R-T Axes : 000 030 188 degrees QTc Int : 433 ms Atrial fibrillation Abnormal ECG When compared with ECG of 03-JUL-2018 20:10, (Unconfirmed) Vent. rate has decreased BY 45 BPM T wave inversion now evident in Anterior leads Confirmed by DR. Andreas HANSEN ([id number]) on 08/17/2018 5:02:09 PM Referred By: MAURILIO Confirmed By:DR. Andreas HANSEN
== END 2018-08-17 10:17 | disposition home or self-care (01) ==
LOC: CCL 05:48
PROVIDERS: ATTEND Internal Medicine Cardiovascular Disease
PROC: B246ZZ4 Ultrasonography of Right and Left Heart, Transesophageal (ICD-10-PCS; principal; 2018-08-17)
DX: I48.0 Paroxysmal atrial fibrillation (principal); I12.0 Hypertensive chronic kidney disease with stage 5 chronic kidney disease or end stage renal disease; N18.6 End stage renal disease; I42.0 Dilated cardiomyopathy; I36.1 Nonrheumatic tricuspid (valve) insufficiency; I70.0 Atherosclerosis of aorta; Z79.82 Long term (current) use of aspirin; Z79.01 Long term (current) use of anticoagulants; Z79.899 Other long term (current) drug therapy
CPT/HCPCS: 80048; 85610; 85730; 92960; 93005; 93010; 93312; J2704